=== PATIENT | female | born 1970 | race Caucasian/White ===

== ENCOUNTER → 2016-08-12 | Outpatient (CLI) | payer BC ==
--- NOTE | 2016-08-12 17:15 | KCIC ---
PROCEDURE MRI brain without contrast. HISTORY Vision disturbance and left eye for 1 year. TECHNIQUE Sagittal T1, axial T1, axial T2, axial FLAIR, axial T2 gradient, coronal T2, and diffusion imaging with ADC map were performed. COMPARISON None. FINDINGS The ventricles and sulci are within normal limits for age. There is no acute intracranial hemorrhage or extra-axial fluid collection. There is no mass effect or midline shift. There is no restricted diffusion to suggest an acute infarct. Cervicomedullary junction is unremarkable. Pituitary and suprasellar region are unremarkable. Intracranial flow voids are preserved. Paranasal sinuses and mastoid air cells are clear. Orbital contents are grossly unremarkable on whole-brain imaging. Small Tornwaldt cyst in the nasopharynx is noted. IMPRESSION No acute intracranial findings. Electronically signed by: Rakan Becker MD (Aug 12, 2016 17:14:22)
== END | disposition home or self-care (01) ==
LOC: KCIC MRI 15:39
PROVIDERS: ATTEND Nurse Practitioner Family
DX: H53.9 Unspecified visual disturbance (principal); J39.2 Other diseases of pharynx
CPT/HCPCS: 70551

== ENCOUNTER → 2018-05-21 | Outpatient (CLI) | payer OTHER, BC ==
[2018-04-17 11:17] VITALS: BP 132/77
[~2018-05-21] MED LIST: CYCL5TAB PO; IBUP-1060 PO
--- NOTE | 2018-05-21 13:09 | KCIC ---
MR of the left shoulder Indication: Left shoulder pain, radiates up and down arm. Injury April 16, 2018.. Comparison: None are available. Technique: Standard multiplanar sequences are obtained. Findings: Artifact: Moderate motion degradation despite patient discussion and repeated attempts of scanning. Acromioclavicular joint: Small undersurface osteophytes. Rotator cuff: * Supraspinatus-infraspinatus tendon: Intact * Subscapularis tendon: Intact * Muscle bulk: Within normal limits * Subacromial subdeltoid bursa: No significant effusion. Fluid: No significant glenohumeral effusion. Glenohumeral cartilage: No acute defect or advanced DJD. Labrum: No evidence of labral detachment. Biceps tendon: Intact Bones: No lesion or acute fracture. Soft tissue: No acute findings.. Impression: 1. Mild undersurface osteophytes at the acromioclavicular joint. 2. No evidence of rotator cuff tear or other internal derangement. Electronically signed by: Helder Barron MD (05/21/2018 1:04 PM) [id number]
== END | disposition home or self-care (01) ==
LOC: KCIC MRI 09:33
PROVIDERS: ATTEND Nurse Practitioner Family
DX: M25.712 Osteophyte, left shoulder (principal)
CPT/HCPCS: 73221